=== PATIENT | male | born 1940 | race Caucasian/White ===

== ENCOUNTER 2016-03-20 12:31 | Emergency (ER) | payer MEDICARE, OTHER ==
[~2016-03-20] VITALS: Ht 180.3 cm; Wt 90.5 kg
[~2016-03-20 12:31] MED LIST: ASPI81 PO; GABA800T PO; HYDR-3580 PO; LORT7.5T3 PO; METHO500 PO; OMEP20CA5 PO; PRAV40TA PO; SENN5UDC PO; STOO100C PO; TERA2CAP3 PO; TRAZ100T50 PO
[2016-03-20 12:33] VITALS: BP 204/84; PULSE 94; RESP 12; TEMP 98.1; O2SAT 97
[2016-03-20] MEDS ORDERED: PRAV40TA PO (12:56)
[2016-03-20] MEDS ORDERED: PRIL20CA9 PO (12:56)
[2016-03-20] MEDS ORDERED: DULC10SU3 RECTAL (12:56)
[2016-03-20] MEDS ORDERED: HYDR-3580 PO (12:56)
[2016-03-20] MEDS ORDERED: GABA800T PO (12:56)
[2016-03-20] MEDS ORDERED: TERA2CAP3 PO (12:56)
[2016-03-20] MEDS ORDERED: TRAZ100T4 PO (12:56)
[2016-03-20] MEDS ORDERED: ROBA500T PO (12:56)
[2016-03-20] MEDS ORDERED: ASPI81CH3 CHEW (12:56)
[2016-03-20] MEDS ORDERED: COLA100C3 PO (12:56)
--- NOTE | 2016-03-20 12:57 | PD ---
HPI Chief Complaint: Injury Time Seen by Provider: 12:57 Travel History International Travel<30 days: No Contact w/Intl Traveler<30days: No Traveled to known affect area: No History of Present Illness HPI 76-year-old male with a history of paraplegia secondary to spinal cord injury presents to the emergency department for evaluation of left hand second finger injury status post fall from his wheelchair. The patient states that he was trying to transition from a sitting chair to his wheelchair when he lost his balance falling onto his knees and catching himself with his outstretched left hand. States that his left hand second finger was injured in the process. He denies head trauma or loss of consciousness. He complains of pain in his left hand second finger with some deformity. Pain is aggravated with any sort of movement or palpation. States that there is some tingling sensation in the distal tip of his finger. Denies any alleviating factors. States that he does not have normal sensation in his lower extremities, states that he generally feels only pins and needles in his legs at all times. Denies headache, lightheadedness, dizziness, nausea, vomiting, chest pain, shortness of breath, neck or back pain. No other complaints. Tetanus vaccination is up-to-date. PFSH Past Medical History Arthritis: No Asthma: No Autoimmune Disease: No Blood Disorders: No Anxiety: No Depression: No Heart Rhythm Problems: No Cancer: No Cardiovascular Problems: Yes High Cholesterol: Yes Chemotherapy: No Chest Pain: No Congestive Heart Failure: No COPD: No Cerebrovascular Accident: No Diabetes: No Diminished Hearing: No Endocrine: No Gastrointestinal Disorders: Yes GERD: Yes Glaucoma: No Genitourinary: No Headaches: No Hepatitis: No Hiatal Hernia: No Hypertension: Yes Immune Disorder: No Kidney Stones: No Musculoskeletal: Yes Neurologic: Yes (AVM) Psychiatric: No Reproductive: No Respiratory: No Migraines: No Myocardial Infarction: No Radiation Therapy: No Renal Failure: No Seizures: No Sickle Cell Disease: No Sleep Apnea: No Thyroid Disease: No Ulcer: No Past Surgical History Abdominal Surgery: No AICD: No Appendectomy: No Arteriovenous Shunt: No Body Medical Devices: SPINAL CORD INJURY Cardiac Surgery: No Cholecystectomy: Yes Ear Surgery: No Endocrine Surgery: No Eye Surgery: No Genitourinary Surgery: No Gynecologic Surgery: No Insulin Pump: No Joint Replacement: No Neurologic Surgery: Yes (AVM IN BACK, SURGERY AT [facility]) Oral Surgery: No Pacemaker: No Thoracic Surgery: No Tonsillectomy: Yes Social History Alcohol Use: No Tobacco Use: No Substance Use: No Allergies-Medications (Allergen,Severity, Reaction): Coded Allergies: Contrast Media (Verified Allergy, Severe, Rash, 03/20/16) Dicyclomine (Verified Allergy, Severe, 03/20/16) Reported Meds & Prescriptions Reported Meds & Active Scripts Active Reported Sulfamethoxazole-Trimethoprim 800-160 Mg Tab 1 Tab PO BID Dulcolax Supp (Bisacodyl) 10 Mg Supp 10 Mg RECTAL DAILY PRN Prilosec (Omeprazole) 20 Mg Cap 20 Mg PO DAILY Pravachol (Pravastatin) 40 Mg Tab 40 Mg PO DAILY Aspirin 81 Low Dose (Aspirin) 81 Mg Chew 81 Mg CHEW DAILY Terazosin (Terazosin HCl) 2 Mg Cap 2 Mg PO BID Colace (Docusate Sodium) 100 Mg Cap 100 Mg PO BID Robaxin (Methocarbamol) 500 Mg Tab 500 Mg PO Q6HR PRN Hydrocodone-Acetaminophen 7.5-325 mg Tab 1 Tab PO Q6H PRN Gabapentin 800 Mg Tab 800 Mg PO BID Trazodone (Trazodone HCl) 100 Mg Tab 100 Mg PO HS Review of Systems Except as stated in HPI: all other systems reviewed are Neg Physical Exam Narrative GENERAL: Well-nourished and well-developed pleasant male patient in no acute distress. SKIN: No obvious lacerations or abrasions noted. HEAD: Normocephalic and atraumatic. EYES: No scleral icterus, injection, or drainage. PERRLA. EOMI. No hyphema present. ENT: No septal hematoma or hemotympanum noted. Oropharynx is clear and the airway is patent. NECK: Supple and the trachea is midline. No obvious deformities, crepitus, or midline tenderness noted. CARDIOVASCULAR: Regular rate and rhythm. RESPIRATORY: Breath sounds are equal bilaterally with no accessory muscle use, wheezing, rhonchi, or crackles. GASTROINTESTINAL: Abdomen is soft, non-tender, and nondistended. MUSCULOSKELETAL: Abrasion to anterior left knee. No obvious deformities, swelling, cyanosis, or ecchymosis is present throughout the upper and lower extremities. Patient has full passive range of motion of lower extremities. Full active range of motion in upper extremities with the exception of the left hand second finger. EXTREMITY: Left hand second finger with swelling and deformity at PIP joint, decreased range of motion in this finger secondary to pain. Full range of motion in all other joints. Lumbrical and interossei function intact. Normal opposition of thumb. Distal extremity neurovascularly intact with intact two point discrimination. NEUROLOGICAL: Awake, alert, and oriented. Normal speech and gait. Cranial nerves are grossly intact. Data Data Last Documented VS Vital Signs Date Time Temp Pulse Resp B/P Pulse Ox O2 Delivery O2 Flow Rate FiO2 03/20/16 12:33 98.1 94 12 204/84 97 Room Air Orders Hand, Complete ([id number]) (03/20/16 12:54) Bupivacaine Pf 0.5% Inj (Marcaine Pf 0.5 (03/20/16 13:00) Lidocaine 2% Inj (Xylocaine 2% Inj) (03/20/16 13:00) Knee, Ltd (1 Or 2vws) (03/20/16 12:54) Knee, Ltd (1 Or 2vws) (03/20/16 12:54) Finger ([id number]) (03/20/16 14:20) Splint Or Brace Apply/Monitor (03/20/16 14:32) Finger Splint (03/20/16 ) MDM Medical Decision Making Medical Screen Exam Complete: Yes Emergency Medical Condition: Yes Differential Diagnosis Dislocation versus fracture versus contusion Narrative Course 76-year-old male presents to the emergency department for evaluation of left hand second finger injury status post fall from his wheelchair. Patient is afebrile. He is slightly hypertensive, likely secondary to pain. Vital signs are stable. No head trauma or loss of consciousness. The patient's left hand second finger does have swelling and deformity, x-ray imaging has been ordered and is pending. There is also an abrasion noted to the left knee and the patient has decreased sensation in his lower extremities secondary to a previous spinal cord injury therefore we'll do x-rays of both knees to rule out any sort of traumatic injury. Digital block is performed, see procedure narrative. X-ray of left knee is unremarkable. X-ray of right knee is unremarkable. X-ray of the left hand shows a dislocation of the left hand second PIP. Post reduction x-ray of the left hand second finger confirms successful reduction. Patient's left hand second finger is placed in a splint at 30. He's advised to follow-up Procedures Procedure Narrative DIGITAL BLOCK & JOINT REDUCTION LOCATION: Left hand second finger The area of the laceration was prepped with Betadine and sterilely draped. The finger was digitally blocked using 0.5% bupivacaine and 2% lidocaine. I performed a closed reduction of left hand second finger PIP dislocation. Patient tolerated well. Finger placed in a finger splint at 30 flexion. A sterile dressing was applied. Diagnosis Primary Impression: Dislocation, finger closed Qualified Code: S63.259A - Dislocation, finger closed, initial encounter Referrals: Hand Surgeon Patient Instructions: Finger Dislocation (ED), General Instructions Additional Instructions: Finger splint. Apply ice for 20 minutes on, 20 minutes off. Follow-up with your Primary Care Physician or a hand specialist. Return to the ED for any acute worsening of symptoms. Med/Other Pt SpecificInfo: No Change to Meds Disposition: 01 DISCHARGE HOME Condition: Stable Aimee Serra Mar 20, 2016 12:57
[2016-03-20] MEDS ORDERED: BUPIVACAINE HCL PF 0.5% 10 ML VIAL INFIL ONE (13:00)
[2016-03-20] MEDS ORDERED: LIDOCAINE HCL 2% 20 ML VIAL INFIL ONE (13:00)
[2016-03-20] MEDS ORDERED: TETANUS/DIPHTHERIA TOXOID ADULT 0.5 ML VIAL IM ONE (13:00)
[2016-03-20] MEDS ORDERED: SULF1TAB23 PO (13:01)
--- NOTE | 2016-03-20 14:23 | RADRPT ---
EXAM DATE/TIME: 03/20/2016 13:29 [facility] COMPARISON: CT BRAIN W/O CONTRAST, January 08, 2016, 14:41. INDICATIONS : Right Knee Pain MEDICAL HISTORY : Hypertension. SURGICAL HISTORY : Tonsillectomy. AVM ENCOUNTER: Initial ACUITY: 1 day PAIN SCORE: 5/10 LOCATION: Right Knee FINDINGS: Two view examination of the right knee demonstrates no evidence of fracture or dislocation. Bony min eralization is normal. The suprapatellar soft tissues have a normal configuration. CONCLUSION: Unremarkable limited examination of the right knee. Miranda Montes De Oca MD on March 20, 2016 at 14:12 Board Certified Radiologist. This report was verified electronically.
--- NOTE | 2016-03-20 14:40 | RADRPT ---
EXAM DATE/TIME: 03/20/2016 13:19 [facility] COMPARISON: No previous studies available for comparison. INDICATIONS : Left hand pain post fall MEDICAL HISTORY : Hypertension. SURGICAL HISTORY : Tonsillectomy. AVM ENCOUNTER: Initial ACUITY: 1 day PAIN SCORE: 10/10 LOCATION: Left upper extremity FINDINGS: There is complete dorsal dislocation of the left second middle phalanx in relation to the proximal ph alanx. No definite fracture is noted. CONCLUSION: Complete dorsal dislocation of the left second middle phalanx in relation to the proximal phalanx wi thout definite fracture. Emilio Muniz MD on March 20, 2016 at 14:19 Board Certified Radiologist. This report was verified electronically.
--- NOTE | 2016-03-20 14:43 | RADRPT ---
EXAM DATE/TIME: 03/20/2016 13:33 [facility] COMPARISON: No previous studies available for comparison. INDICATIONS: Left knee pain MEDICAL HISTORY: Hypertension. SURGICAL HISTORY: Tonsillectomy. AVM ENCOUNTER: Initial ACUITY: 1 day PAIN SCORE: 7/10 LOCATION: Left knee FINDINGS: Mild degenerative changes are noted involving the patellofemoral joint. There is no acute fracture o r dislocation of the left knee. No knee joint effusion is noted. CONCLUSION: 1. Mild degenerative changes involving the patellofemoral joint. 2. No acute fracture or dislocation. Emilio Muniz MD on March 20, 2016 at 14:20 Board Certified Radiologist. This report was verified electronically.
--- NOTE | 2016-03-20 15:15 | RADRPT ---
EXAM DATE/TIME: 03/20/2016 14:28 [facility] COMPARISON: KNEE LEFT LTD (1 OR 2VWS), March 20, 2016, 13:33. INDICATIONS : Post reduction left hand, second digit. MEDICAL HISTORY : None. SURGICAL HISTORY : None. ENCOUNTER: Subsequent ACUITY: 1 day PAIN SCORE: 5/10 LOCATION: Left hand, second digit. FINDINGS: 3 views of the left index finger demonstrate a small avulsion fracture along the volar plate at the l evel of the PIP joint. The donor site is not visualized. Mild adjacent soft tissue edema. The osseous structures are otherwise unremarkable. CONCLUSION: Avulsion fracture along the volar aspect of the left index finger at the PIP joint. The fracture site is not identified.. Miranda Montes De Oca MD on March 20, 2016 at 15:13 Board Certified Radiologist. This report was verified electronically.
== END 2016-03-20 15:25 | disposition home or self-care (01) ==
LOC: NETRI 12:31
DX: S63.251A Unspecified dislocation of left index finger, initial encounter (principal); W05.0XXA Fall from non-moving wheelchair, initial encounter
CPT/HCPCS: 26770; 73130; 73140; 73560

== ENCOUNTER 2016-09-22 04:55 | Emergency (ER) | payer OTHER, MEDICARE ==
[~2016-09-22] VITALS: Ht 180.3 cm; Wt 92.0 kg
[~2016-09-22 04:55] MED LIST changes: -ASPI81 PO; +ASPI81CH3 CHEW; +COLA100C3 PO; +DULC10SU3 RECTAL; -LORT7.5T3 PO; -METHO500 PO; -OMEP20CA5 PO; +PRIL20CA9 PO; +ROBA500T PO; -SENN5UDC PO; -STOO100C PO; +SULF1TAB23 PO; +TRAZ100T4 PO; -TRAZ100T50 PO
[2016-09-22 04:58] VITALS: BP 157/97; PULSE 107; RESP 18; TEMP 97.9; O2SAT 94
--- NOTE | 2016-09-22 05:20 | PD ---
HPI Chief Complaint: Complaint Time Seen by Provider: 05:18 Travel History International Travel<30 days: No Contact w/Intl Traveler<30days: No Traveled to known affect area: No History of Present Illness HPI 76 year-old male presents to the emergency department by private transportation the care of his spouse for complaint of urinary retention. Patient underwent elective fistulotomy at 11 AM via the [facility] 09/21/16. Patient has not had normal urine output since procedure. Patient was given catheters by his provider to self catheter as they informed him he may have some post procedure urinary retention. 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. Patient is able to weight-bear to transfer. Patient typically does not use self-catheterization have indwelling catheter as able to urinate independently. Patient's had no fever or chills. Patient denies any nausea or vomiting. Patient has suprapubic pressure and discomfort. No flank pain. Patient states at home he attempted self-catheterization and did not successfully drain any urine but did note after removing catheter there was blood at the urethral meatus. Patient decided to present at this time for further evaluation. [facility] Past Medical History Narrative Medical Hypertension dyslipidemia paraplegia spinal AVM repair Gus's; cholecystectomy , fistulotomy Arthritis: No Asthma: No Autoimmune Disease: No Blood Disorders: No Anxiety: No Depression: No Heart Rhythm Problems: No Cancer: No Cardiovascular Problems: Yes High Cholesterol: Yes Chemotherapy: No Chest Pain: No Congestive Heart Failure: No COPD: No Cerebrovascular Accident: No Diabetes: No Diminished Hearing: No Endocrine: No Gastrointestinal Disorders: Yes GERD: Yes Glaucoma: No Genitourinary: No Headaches: No Hepatitis: No Hiatal Hernia: No Hypertension: Yes Immune Disorder: No Kidney Stones: No Musculoskeletal: Yes Neurologic: Yes (AVM) Psychiatric: No Reproductive: No Respiratory: No Migraines: No Myocardial Infarction: No Radiation Therapy: No Renal Failure: No Seizures: No Sickle Cell Disease: No Sleep Apnea: No Thyroid Disease: No Ulcer: No Past Surgical History Abdominal Surgery: No AICD: No Appendectomy: No Arteriovenous Shunt: No Body Medical Devices: SPINAL CORD INJURY Cardiac Surgery: No Cholecystectomy: Yes Ear Surgery: No Endocrine Surgery: No Eye Surgery: No Genitourinary Surgery: No Gynecologic Surgery: No Insulin Pump: No Joint Replacement: No Neurologic Surgery: Yes (AVM IN BACK, SURGERY AT [facility]) Oral Surgery: No Pacemaker: No Thoracic Surgery: No Tonsillectomy: Yes Social History Alcohol Use: No Tobacco Use: No Substance Use: No Allergies-Medications (Allergen,Severity, Reaction): Coded Allergies: Contrast Media (Verified Allergy, Severe, Rash, 09/22/16) Dicyclomine (Verified Allergy, Severe, 09/22/16) Reported Meds & Prescriptions Reported Meds & Active Scripts Active Reported Dulcolax Supp (Bisacodyl) 10 Mg Supp 10 Mg RECTAL DAILY PRN Pravachol (Pravastatin) 40 Mg Tab 40 Mg PO DAILY Aspirin 81 Low Dose (Aspirin) 81 Mg Chew 81 Mg CHEW DAILY Terazosin (Terazosin HCl) 2 Mg Cap 2 Mg PO BID Robaxin (Methocarbamol) 500 Mg Tab 500 Mg PO Q6HR PRN Hydrocodone-Acetaminophen 7.5-325 mg Tab 1 Tab PO Q6H PRN Gabapentin 800 Mg Tab 800 Mg PO BID Review of Systems Except as stated in HPI: all other systems reviewed are Neg General / Constitutional: No: Fever HENT: No: Congestion Cardiovascular: No: Chest Pain or Discomfort Respiratory: No: Shortness of Breath Gastrointestinal: No: Abdominal Pain Genitourinary: Positive: Decreased Urinary Output, Dribbling Musculoskeletal: No: Myalgias, Arthralgias Skin: No Rash Neurologic: No: Weakness Psychiatric: No: Anxiety Hematologic/Lymphatic: No: Lymph Node Enlargement Physical Exam Narrative GENERAL: Well-developed well-nourished male in obvious discomfort no respiratory distress SKIN: Warm and dry. HEAD: Normocephalic. EYES: No scleral icterus. No injection or drainage. NECK: Supple, trachea midline. No JVD or lymphadenopathy. CARDIOVASCULAR: Regular rate and rhythm without murmurs, gallops, or rubs. RESPIRATORY: Breath sounds equal bilaterally. No accessory muscle use. GASTROINTESTINAL: Abdomen soft, suprapubic tenderness to palpation otherwise nontender, suprapubic distended. MUSCULOSKELETAL: No cyanosis, or edema. BACK: Nontender without obvious deformity. No CVA tenderness. Data Data Last Documented VS Vital Signs Date Time Temp Pulse Resp B/P Pulse Ox O2 Delivery O2 Flow Rate FiO2 09/22/16 05:21 97.9 107 18 157/97 96 Orders Urinalysis - C+S If Indicated (09/22/16 05:20) Urinary Catheter Insert/Apply (09/22/16 05:20) Labs Laboratory Tests Test 09/22/16 05:20 Urine Color SUELLEN Urine Turbidity CLEAR Urine pH 6.0 Urine Specific Bath 1.018 Urine Protein NEG mg/dL Urine Glucose (UA) NEG mg/dL Urine Ketones NEG mg/dL Urine Occult Blood SMALL Urine Nitrite NEG Urine Bilirubin NEG Urine Leukocyte Esterase NEG Urine RBC 4-9 /hpf Urine WBC 0-2 /hpf Urine Squamous Epithelial 0-5 /hpf Cells Urine Bacteria NONE /hpf Microscopic Urinalysis Comment CATH-CULT NOT IND MDM Medical Decision Making Medical Screen Exam Complete: Yes Emergency Medical Condition: Yes Medical Record Reviewed: Yes Interpretation(s) UA: small blood Differential Diagnosis Urinary retention, obstructive uropathy, UTI, renal insufficiency Narrative Course Urinary catheter inserted and patient with 1000 ML urine output; patient requests urinary catheter to be removed Catheter removed and urine specimen sent for urinalysis; patient observed in the emergency department to see if able to urinate independently while awaiting UA results At 5:48 AM urinalysis shows small blood otherwise unremarkable culture not indicated; patient declines indwelling catheter; patient stable for discharge Diagnosis Primary Impression: Urinary retention Referrals: [place] [facility] Patient Instructions: General Instructions Additional Instructions: Increase fluid hydration Follow-up with primary care provider/[place] clinic Return to the emergency department for any concerns or change in condition Monitor temperature every 4 hours with thermometer and take as needed acetaminophen/Tylenol for fever 100.4F or greater Disposition: 01 DISCHARGE HOME Condition: Stable Blaire Mojica MD Sep 22, 2016 05:19
[2016-09-22 05:21] VITALS: BP 157/97; PULSE 107; RESP 18; TEMP 97.9; O2SAT 96
[2016-09-22 05:28] LABS: BLOOD, URINE SMALL (NEG); GLUCOSE,URINE NEG (NEG); KETONE, URINE NEG (NEG); NITRITE,URINE NEG (NEG)
[2016-09-22 05:34] LABS: URINE COLOR AMBER (YELLW/STRAW)
[2016-09-22 05:35] LABS: COMMENT (UR) CATH-CULT NOT IND; CULTURE IF INDICATED CATH CULTURE NOT IND; SQUAMOUS EPITHELIAL CELL URINE 0-5 /hpf (0-5); WBC, URINE 0-2 /hpf (0-5)
[2016-09-22 05:53] VITALS: BP 150/80; PULSE 88; RESP 18; O2SAT 97
== END 2016-09-22 06:06 | disposition home or self-care (01) ==
LOC: PHED 04:55
DX: R33.9 Retention of urine, unspecified (principal); G82.20 Paraplegia, unspecified; I10 Essential (primary) hypertension; E78.5 Hyperlipidemia, unspecified; Z98.890 Other specified postprocedural states; Z86.79 Personal history of other diseases of the circulatory system; Z87.19 Personal history of other diseases of the digestive system; Z87.39 Personal history of other diseases of the musculoskeletal system and connective tissue; Z86.69 Personal history of other diseases of the nervous system and sense organs
CPT/HCPCS: 81001; 99283; P9612